=== PATIENT | female | born 2005 | race Hispanic/Latino ===

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

== ENCOUNTER → 2023-09-10 | Outpatient (CLI) | payer OTHER ==
[~2023-09-10] MED LIST: CENO50TA PO; LEVE750T10 PO; MIDA5SPR NS; OXCA300T28 PO
[2023-09-10 09:17] LABS: BASOPHILS # (AUTO) 0.05 K/uL (0.00-0.20); EOSINOPHILS # (AUTO) 0.09 K/uL (0.00-0.70); EOSINOPHILS % (AUTO) 1.8 % (0.0-8.0); HEMATOCRIT 36.1 % (36-48); IMMATURE GRANULOCYTE ABSOLUTE 0.01 K/uL (0-1); LYMPHOCYTES # (AUTO) 1.6 K/uL (1.0-4.8); LYMPHOCYTES % (AUTO) 32.1 % (21.0-51.0); MEAN CORPUSCULAR HEMOGLOBIN 30.4 pg (27.0-33.0); MEAN CORPUSCULAR HGB CONC 34.1 g/dL (32.0-36.0); MEAN CORPUSCULAR VOLUME 89.1 fL (80-100); MONOCYTES # (AUTO) 0.4 K/uL (0.1-1.0); MONOCYTES % (AUTO) 7.4 % (3.0-13.0); NEUTROPHILS # (AUTO) 2.9 K/uL (1.8-7.7); NEUTROPHILS % (AUTO) 57.5 % (40.0-77.0); PLATELET COUNT (AUTO) 252 K/uL (130-400); RED BLOOD CELL COUNT(AUTO) 4.05 MIL/uL (4.00-5.50); RED CELL DISTRIBUTION WIDTH 11.8 % (11.0-15.5)
[2023-09-10 09:31] LABS: % IRON SATURATION 65.7 % (22-44)
[2023-09-10 09:47] LABS: ALBUMIN 3.8 g/dL (3.5-5.0); BILIRUBIN,TOTAL 0.4 mg/dL (0.2-1.0); CREATININE 0.7 mg/dL (0.5-1.5); POTASSIUM 3.6 mmol/L (3.5-5.1); TOTAL PROTEIN, SERUM 7.5 g/dL (6.0-8.3)
== END | disposition home or self-care (01) ==
LOC: LAB 08:19
PROVIDERS: ATTEND Student in an Organized Health Care Education/Training Program
DX: G44.209 Tension-type headache, unspecified, not intractable (principal); G40.109 Localization-related (focal) (partial) symptomatic epilepsy and epileptic syndromes with simple partial seizures, not intractable, without status epilepticus; Z98.890 Other specified postprocedural states
CPT/HCPCS: 36415; 80053; 80177; 82306; 82542; 82728; 83540; 83550; 85025

== ENCOUNTER 2024-08-14 15:31 | Emergency (ER) | payer OTHER ==
[~2024-08-14] VITALS: Ht 160 cm; Wt 52.2 kg
--- NOTE | 2024-08-14 15:34 | NUR ---
PT WAS ASSISTED OUT OF VEHCILE D/T SEIZURE AND FAMILY HAVING GIVEN MEDS NASALLY X 2
--- NOTE | 2024-08-14 15:36 | NUR ---
PT WAS PLACED IN MY ED BED 11
--- NOTE | 2024-08-14 15:45 | NUR ---
SEIZURE PRECAUTIONS PADS PLACED
--- NOTE | 2024-08-14 15:48 | NUR ---
PENDING TEST RESULTS FOR CT EXAM.
[2024-08-14 15:57] LABS: BASOPHILS # (AUTO) 0.07 K/uL (0.00-0.20); BASOPHILS % (AUTO) 0.7 % (0.0-5.0); EOSINOPHILS # (AUTO) 0.06 K/uL (0.00-0.70); EOSINOPHILS % (AUTO) 0.6 % (0.0-8.0); HEMATOCRIT 41.9 % (36-48); IMMATURE GRANULOCYTE ABSOLUTE 0.05 K/uL (0-1); LYMPHOCYTES # (AUTO) 4.3 K/uL (1.0-4.8); MEAN CORPUSCULAR HGB CONC 33.7 g/dL (32.0-36.0); MEAN CORPUSCULAR VOLUME 92.1 fL (80-100); MONOCYTES # (AUTO) 0.6 K/uL (0.1-1.0); MONOCYTES % (AUTO) 6.2 % (3.0-13.0); NEUTROPHILS # (AUTO) 5.1 K/uL (1.8-7.7); PLATELET COUNT (AUTO) 460 K/uL (130-400); RED BLOOD CELL COUNT(AUTO) 4.55 MIL/uL (4.00-5.50); RED CELL DISTRIBUTION WIDTH 11.6 % (11.0-15.5); WHITE BLOOD COUNT (AUTO) 10.2 K/uL (4.8-10.8)
[2024-08-14] MEDS: leveTIRACEtam 500 MG/5 ML SD VIAL IV SCH (16:01)
[2024-08-14] MEDS: 0.9%NACL 1000ML 1,566 ML IV ONE (16:01)
[2024-08-14] MEDS: ondanSETRON 4MG INJ ONE (16:02)
[2024-08-14] MEDS: ondanSETRON 4MG INJ IVP ONE (16:02)
[2024-08-14 16:12] LABS: CREATININE 1.2 mg/dL (0.5-1.0); POTASSIUM 3.3 mmol/L (3.5-5.1)
--- NOTE | 2024-08-14 16:17 | NUR ---
PT JUST RETURNED FROM CT SCAN
--- NOTE | 2024-08-14 16:26 | NUR ---
PT CURRENTLY ON WICK TENDER: SINUS RHYTHM NO NOTED ECTOPY
--- NOTE | 2024-08-14 16:27 | NUR ---
PT CURRENTLY LYING ON R LATERAL SIDE. NO ACUTE DISTRESS NOTED. FATHER AT BEDSIDE.
--- NOTE | 2024-08-14 16:28 | HMCIMG ---
Exam: NONCONTRAST CT BRAIN REASON: seizure. COMPARISON: 03/25/2022 TECHNIQUE: Images are obtained from vertex to the skull base. The exam was performed without IV contrast. FINDINGS: There is a focal area of decreased attenuation in the peripheral portion of the right temporal lobe, appearance is consistent with encephalomalacia. There is no evidence of focal mass or hemorrhage. This is a new finding compared to prior study 03/25/2022, there is a history of previous MR guided the brain ablation. There is otherwise normal appearing brain parenchyma. There are no focal mass lesions. There is is no evidence of intracranial hemorrhage or acute stroke. Ventricles and sulci appear normal. Posterior fossa and brainstem structures are unremarkable. Paranasal sinuses and remaining extracranial soft tissues appear normal as well. IMPRESSION: 1. 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 2. Otherwise unremarkable noncontrast CT brain. CT was performed with one or more following dose reduction techniques: automated exposure control, adjustment of the mA and kv according to patient's size, or use of a iterative reconstruction technique.
--- NOTE | 2024-08-14 17:10 | NUR ---
BED ASSIGNMENT: [facility] NAV SUPERIVSOShashank GOODMAN RN, PT ASSIGNED TO ICU 209. I AM TO WAIT 30MINS THEN ATTEMPT TO CALL REPORT
--- NOTE | 2024-08-14 17:32 | NUR ---
PER FAMILY, PT HAS A C/O HEADACHE-SUZANNA TO AREA OF HER L FOREHEAD/L ORBIT CONTUSION/ABRASION
--- NOTE | 2024-08-14 18:15 | NUR ---
PT MORE ALERT AND ANSWERING QUESTIONS NOW.
[2024-08-14] MEDS: acetaMINOPHEN 325 MG/10.15ML UDCUP PO ONE (18:34)
--- NOTE | 2024-08-14 18:46 | ERN ---
General Chief Complaint: Seizure Stated Complaint: SEIZURE Time Seen by MD: 15:36 Source: patient, family History of Present Illness Initial Comments Patient is a 19-year-old female coming in to be evaluated for seizure-like activity. Patient does have a history of seizures. Per mother patient was seizing for 4-5 minutes before she was brought in to be evaluated. Patient has recent procedure performed last month for ablation to help relieve the seizures. Allergies: Coded Allergies: No Known Drug Allergies (Unverified Allergy, Unknown, 03/25/22) Home Meds Active Scripts Midazolam (Nayzilam) 5 Mg/0.1 Ml [place], 5 MG NS ONCE PRN for SEIZURES, #1 SPRAY Prov:ALEXANDER KATZTIKA [employer] 03/25/22 Reported Medications Midazolam (Nayzilam) 5 Mg/0.1 Ml [place], 5 MG NS AD PRN for SEIZURE LONGER THAN 5 MINUTES, SPRAY 03/25/22 Oxcarbazepine (Oxcarbazepine) 300 Mg Tablet, 300 MG PO BID, TAB 03/25/22 Cenobamate (Xcopri) 50 Mg Tablet, 50 MG PO BID, TAB 03/25/22 Levetiracetam (Levetiracetam) 750 Mg Tablet, 750 MG PO BID, TAB 03/25/22 Past Medical History Past Medical History: Seizure Past Surgical History: None Surgical History Other: MRI GUIDED BRAIN CATERIZATION ROS Dictation Unable to perform due to generalized body weakness and presentation postictal. Physical Exam Physical Exam Dictation VITAL SIGNS: Reviewed. GENERAL APPEARANCE: Alert, oriented x1, no acute distress, obese. HEAD AND FACE: Non-traumatic. EYES: PERRL, pink conjunctivas, eyelid no trauma, anterior chamber clear. EARS: Pinnas intact and no signs of trauma or erythema. Ear canals clear and no discharge. TMs no erythema. NOSE: No discharge, no bleeding. OROPHARYNX: Mouth normal, teeth no caries, tongue pink. Pharynx clear, no erythema. Tonsils no exudates, no abscesses noted. Mucous membrane moist. NECK: Supple, non-tender, no thyromegaly, no masses, no JVD, no bruits. BREAST: Deferred. CHEST: No tenderness, no crepitus, no paradoxical movement, no retractions. LUNGS: Clear, well-ventilated, symmetric, no rales, no wheezing, no rhonchi, no stridor, good breath sounds bilaterally. HEART: Regular rate, regular rhythm, no murmur, no gallops. VASCULAR: No peripheral edema. ABDOMEN: Soft, positive bowel sounds, nondistended, no guarding, nontender, no rebound, no masses no hepatomegaly, no splenomegaly, no Candelario's sign, no hernias. RECTAL: Deferred. GENITAL: Deferred. NEUROLOGICAL: Normal speech, gross motor function intact, gross sensory function intact. MUSCULOSKELETAL: Neck nontender, full range of motion, back nontender, full range of motion. EXTREMITIES: Nontender, full range of motion. SKIN: Color pink, dry, no turgor, no rash, no lacerations, no abrasions, no contusions. LYMPHATICS: Deferred. Results Laboratory and Microbiology Lab and Micro Result Laboratory Tests Test 08/14/24 15:50 08/14/24 18:35 08/14/24 19:57 White Blood Count 10.2 K/uL (4.8-10.8) Red Blood Count 4.55 MIL/uL (4.00-5.50) Hemoglobin 14.1 g/dL (12.0-16.0) Hematocrit 41.9 % (36-48) Mean Corpuscular Volume 92.1 fL (80-100) Mean Corpuscular Hemoglobin 31.0 pg (27.0-33.0) Mean Corpuscular Hemoglobin Concent 33.7 g/dL (32.0-36.0) Red Cell Distribution Width 11.6 % (11.0-15.5) Platelet Count 460 K/uL (130-400) H Mean Platelet Volume 8.8 fL (7.5-10.5) Immature Granulocyte % (Auto) 0.5 % (0-1) Neutrophils (%) (Auto) 50.0 % (40.0-77.0) Lymphocytes (%) (Auto) 42.0 % (21.0-51.0) Monocytes (%) (Auto) 6.2 % (3.0-13.0) Eosinophils (%) (Auto) 0.6 % (0.0-8.0) Basophils (%) (Auto) 0.7 % (0.0-5.0) Neutrophils # (Auto) 5.1 K/uL (1.8-7.7) Lymphocytes # (Auto) 4.3 K/uL (1.0-4.8) Monocytes # (Auto) 0.6 K/uL (0.1-1.0) Eosinophils # (Auto) 0.06 K/uL (0.00-0.70) Basophils # (Auto) 0.07 K/uL (0.00-0.20) Absolute Immature Granulocyte (auto 0.05 K/uL (0-1) Nucleated Red Blood Cells 0.0 % (0.0-0.19) Sodium Level 141 mmol/L (136-145) Potassium Level 3.3 mmol/L (3.5-5.1) L Chloride Level 102 mmol/L (101-111) Carbon Dioxide Level 15 mmol/L (21-32) L Blood Urea Nitrogen 13 mg/dL (7-18) Creatinine 1.2 mg/dL (0.5-1.0) H Glomerular Filtration Rate Calc 66 mL/min (>90) Random Glucose 170 mg/dL (70-105) H Lactic Acid Level 14.8 mmol/L (0.8-2.5) H 2.3 mmol/L (0.8-2.5) Total Calcium 9.0 mg/dL (8.5-10.1) Total Creatine Kinase 47 U/L (21-232) Troponin I High Sensitivity 5 ng/L (4-50) Human Chorionic Gonadotropin, Quant 0 mIU/mL (0-5) Urine Color LIGHT-YELLOW (YELLOW) Urine Appearance CLOUDY (CLEAR) H Urine pH 5.0 (5.0-8.0) Urine Specific [place] 1.012 (1.001-1.031) Urine Protein 20 mg/dL (NEGATIVE) H Urine Glucose (UA) NEGATIVE mg/dL (NEGATIVE) Urine Ketones 5 mg/dL (NEGATIVE) H Urine Occult Blood NEGATIVE (NEGATIVE) Urine Nitrate NEGATIVE (NEGATIVE) Urine Bilirubin NEGATIVE mg/dL (NEGATIVE) Urine Urobilinogen 0.2 mg/dL (0.2-1.0) Urine Leukocyte Esterase 75 [place]/uL (NEGATIVE) H Urine RBC 2-5 /HPF (0-1) H Urine WBC 11-25 /HPF (0-1) H Urine Squamous Epithelial Cells MOD /HPF (0-2) Urine Bacteria None /HPF (None Seen) Urine Other Casts 1 /LPF (None Seen) Urine HCG, Qualitative NEGATIVE (NEGATIVE) Labs Reviewed?: Yes EKG/XRAY/US/CT/MRI CT Scan Comment [facility] [address] [place] [address] IMAGING REPORT Signed PATIENT: OSCAR MAN MR#: [id number] : 2005 SEX: F AGE: 19 LOCATION: [facility] ORDER [id number] STATUS: REG ER REPORT#: [id number] SERVICE [id number] REASON: seizure ORDERING PHYSICIAN: MARV POLO MD PROCEDURE: HEAD WO - CT HEAD/BRAIN W/O CONTRAST Exam: NONCONTRAST CT BRAIN REASON: seizure. COMPARISON: 03/25/2022 TECHNIQUE: Images are obtained from vertex to the skull base. The exam was performed without IV contrast. FINDINGS: There is a focal area of decreased attenuation in the peripheral portion of the right temporal lobe, appearance is consistent with encephalomalacia. There is no evidence of focal mass or hemorrhage. This is a new finding compared to prior study 03/25/2022, there is a history of previous MR guided the brain ablation. There is otherwise normal appearing brain parenchyma. There are no focal mass lesions. There is is no evidence of intracranial hemorrhage or acute stroke. Ventricles and sulci appear normal. Posterior fossa and brainstem structures are unremarkable. Paranasal sinuses and remaining extracranial soft tissues appear normal as well. IMPRESSION: 1. 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 2. Otherwise unremarkable noncontrast CT brain. CT was performed with one or more following dose reduction techniques: automated exposure control, adjustment of the mA and kv according to patient's size, or use of a iterative reconstruction technique. DICTATED BY: YAMINI KOCH MD DATE: 08/14/241622 ELECTRONICALLY SIGNED BY: YAMINI KOCH MD DATE: 08/14/241627 [facility] MDM: Differential diagnosis: Seizures, lactic acidosis, Rationale: Tests considered and ordered secondary to shared decision making incl ude: labs, ECG and radiology Previous outside records reviewed: Old ER visits. Risk of complication and/or morbidity or mortality of patient management: None Medications-Per medication reconciliation Need for hospitalization: Patient does meet criteria for hospitalization. Need for emergency major/minor surgery: No There are no social concerns with this patient. Prescription drug management Prescriptions will include symptomatic care Patient's prior external medical records from other ER visits were reviewed by me as indicated. Prior testing and results from previous visits were reviewed. Prior tests were taken into account with medical decision making and resource utilization, independent historian/historians were used to obtain complete medical history. I independently interpreted the test that were performed, results were reviewed by me and considered findings on radiology if ordered. Medical management and examination interpretation discussions were had by me with other qualified healthcare professionals as indicated for the patient's care. Family at this time would like to take the patient to [place]. Patient was lactic acid has normalized and they are wanting to see their neurologist. Patient was no longer postictal and is speaking clearly and sensibly ED Course Orders Procedure Category Date Status Time Cbc With Differential LAB 08/14/24 Complete 15:41 Blood Cult MARCUS 08/14/24 In Process 15:41 Urinalysis Profile LAB 08/14/24 Complete 15:41 Culture Urine MARCUS 08/14/24 In Process 15:41 0.9%Nacl 1000ml (Ns PHA 08/14/24 Complete 1000ml) 16:00 Creatine Kinase, Total LAB 08/14/24 Complete 15:41 Troponin I High LAB 08/14/24 Complete Sensitivity 15:41 Lactic Acid LAB 08/14/24 Complete 15:41 Basic Metabolic Panel LAB 08/14/24 Complete 15:41 ,Urine Test LAB 08/14/24 Complete 15:41 Hcg,Quantitative LAB 08/14/24 Complete 15:41 Levetiracetam 500 PHA 08/14/24 In Process Mg/5 Ml Sd V (Keppra 5 16:00 Ct Head/Brain W/O CT 08/14/24 Resulted Contrast 15:41 Ondansetron 4mg Inj PHA 08/14/24 Complete (Zofran 4mg Inj) 16:00 Ondansetron 4mg Inj PHA 08/14/24 Complete (Zofran 4mg Inj) 15:56 Acetaminophen 325mg PHA 08/14/24 Complete Elixir (Tylenol 325 18:00 Lactic Acid LAB 08/14/24 Complete 18:40 Morphine 4mg Syg PHA 08/14/24 Complete (Morphine 4mg Syg) 19:30 Potassium Chloride PHA 08/14/24 Complete 20meq Er (K-Dur/Klor- 19:30 Current Medications Medications (Trade) Dose Ordered Sig/[place] Route PRN Reason Start Time Stop Time Status Last Admin Dose Admin Acetaminophen (TYLenol 325MG ELIXIR) 1,000 mg ONCE ONCE PO 08/14/24 18:00 08/14/24 18:01 DC 08/14/24 18:34 Levetiracetam (kepPRA 500 MG/5 ML SD VIAL) 1,000 mg ONCE IV 08/14/24 16:00 09/13/24 15:59 08/14/24 16:01 Morphine Sulfate (morPHINE 4MG SYG) 4 mg ONCE ONCE IVP 08/14/24 19:30 08/14/24 19:31 DC 08/14/24 19:27 Ondansetron HCl (zoFRAN 4MG INJ) 4 mg ONCE ONCE IVP 08/14/24 16:00 08/14/24 16:01 DC 08/14/24 16:02 Ondansetron HCl (zoFRAN 4MG INJ) 4 mg STK-MED ONCE .ROUTE 08/14/24 15:56 08/14/24 15:56 DC Potassium Chloride (K-Dur/Klor-Con 20meq) 40 meq ONCE ONCE PO 08/14/24 19:30 08/14/24 19:31 DC 08/14/24 19:40 Sodium Chloride 1,566 ml @ 522 mls/hr ONCE ONCE IV 08/14/24 16:00 08/14/24 18:59 DC 08/14/24 16:01 Vital Signs Date Time Temp Pulse Resp B/P (MAP) Pulse Ox O2 Delivery O2 Flow Rate FiO2 08/14/24 21:11 98.1 67 20 94/67 100 Room Air* 0 21 08/14/24 19:42 99.1 64 20 83/51 100 Room Air* 0 21 08/14/24 15:37 95 25 91/53 97 Nasal Cannula* 3 32 08/14/24 15:32 97.3 106 27 91/53 94 Room Air DX & DISP Disposition: Discharge Departure Impression: Primary Impression: OTHER SEIZURES Additional Impressions: DEHYDRATION, Lactic acidosis Condition: Stable Additional Instructions: Please follow up with your primary care physician/neurologist for further evaluation and care. If you have a reoccurrence of her seizures please come uziel dickerson to the emergency department immediately Referrals: ALAN DAMICO MD (PCP) MARV POLO MD Aug 14, 2024 18:46 PUMA DIALLO MD Aug 14, 2024 21:22
[2024-08-14 18:55] LABS: APPEARANCE,URINE CLOUDY (CLEAR); BILIRUBIN,URINE NEGATIVE (NEGATIVE); COLOR,URINE LIGHT-YELLOW (YELLOW); GLUCOSE, URINE (UA) NEGATIVE (NEGATIVE); KETONES,URINE 5 mg/dL (NEGATIVE); LEUKOCYTE ESTERASE ,URINE 75 Leu/uL (NEGATIVE); NITRATE,URINE NEGATIVE (NEGATIVE); OCCULT BLOOD,URINE NEGATIVE (NEGATIVE); PROTEIN,URINE 20 mg/dL (NEGATIVE); UROBILINOGEN,URINE 0.2 mg/dL (0.2-1.0)
[2024-08-14 18:59] LABS: ADD UA MICROSCOPIC YES
--- NOTE | 2024-08-14 19:00 | NUR ---
REPORT ENDORSED TO VELMA DE LA TORRE
[2024-08-14 19:02] LABS: HCG,QUALITATIVE URINE NEGATIVE (NEGATIVE)
[2024-08-14 19:04] LABS: MUCUS,URINE RARE LPF (None Seen); OTHER CASTS, URINE 1 /LPF (None Seen); SQUAMOUS EPITHELIAL CELL,UR MOD /HPF (0-2)
[2024-08-14] MEDS: morPHINE 4 MG SYG IVP ONE (19:27)
[2024-08-14] MEDS: PoTASSium chloRIDE 20MEQ ER 20 MEQ ERTAB PO ONE (19:40)
[2024-08-14 21:11] VITALS: BP 94/67; PULSE 67; RESP 20; TEMP 98.1; O2SAT 100
== END 2024-08-14 21:38 | disposition home or self-care (01) ==
LOC: EDH 15:31
DX: R56.9 Unspecified convulsions (principal); E86.0 Dehydration; E87.20 Acidosis, unspecified; R50.9 Fever, unspecified
CPT/HCPCS: 99285; 96365; 70450; 96375; 82550; 84484; 80048; 84702; 85025; 87040 ×2; 87086; 82948; 83605 ×2; 81001; 81025; 36415; J1953; J7030; J2405; J2270